=== PATIENT | female | born 1980 | race Two or more races ===

== ENCOUNTER 2024-04-13 15:52 | Emergency (ER) | payer MEDICAID ==
[~2024-04-13] VITALS: Ht 154.9 cm; Wt 103.9 kg
[2024-04-13] MEDS ORDERED: KETOROLAC TROMETHAMINE INJ 30 MG/ML VIAL ONE (18:06)
[2024-04-13] MEDS ORDERED: ACETAMINOPHEN 325 MG TABLET ONE (18:06)
[2024-04-13] MEDS ORDERED: METHOCARBAMOL (500MG) 500 MG TABLET ONE (18:06)
[2024-04-13 18:14] LABS: BASOPHILS # (AUTO) 0.1 K/uL (0.0-0.2); BASOPHILS % (AUTO) 0.5 % (0.0-2.0); EOSINOPHILS % (AUTO) 0.4 % (0.0-6.0); HEMATOCRIT 38 % (33-45); HEMOGLOBIN 12.7 g/dL (11.5-14.8); LYMPHOCYTES # (AUTO) 2.4 K/uL (0.8-4.8); LYMPHOCYTES % (AUTO) 24.6 % (20.0-44.0); MEAN CORPUSCULAR HEMOGLOBIN 29 PG (26.0-33.0); MEAN CORPUSCULAR HGB CONC 33 g/dl (31.0-36.0); MEAN CORPUSCULAR VOLUME 87 fL (82-100); MONOCYTES # (AUTO) 0.7 K/uL (0.1-1.30); MONOCYTES % (AUTO) 7.1 % (2.0-12.0); NEUTROPHILS # (AUTO) 6.5 K/uL (1.8-8.9); NEUTROPHILS % (AUTO) 67.4 % (43.0-81.0); PLATELET COUNT (AUTO) 369 K/uL (150-450); RED BLOOD CELL COUNT(AUTO) 4.37 MIL/uL (4.0-5.2); RED CELL DISTRIBUTION WIDTH 14.1 % (11.5-15.0); WHITE BLOOD COUNT (AUTO) 9.7 K/uL (4.3-11.0)
[2024-04-13] MEDS: METHOCARBAMOL (750MG) 750 MG TABLET PO SCH (18:15)
[2024-04-13] MEDS: KETOROLAC TROMETHAMINE INJ 30 MG/ML VIAL IM ONE (18:15)
[2024-04-13] MEDS: ACETAMINOPHEN 325 MG TABLET PO ONE (18:15)
[2024-04-13 18:24] LABS: CALCIUM, SERUM 9.3 mg/dL (8.5-10.1); CREATININE 0.7 mg/dL (0.6-1.3); POTASSIUM 3.8 mmol/L (3.5-5.1)
[2024-04-13 19:46] VITALS: BP 126/84; TEMP 98.3; O2SAT 100
== END 2024-04-13 19:49 | disposition home or self-care (01) ==
LOC: ER 16:01
DX: M54.50 Low back pain, unspecified (principal); M79.604 Pain in right leg; R42 Dizziness and giddiness; R51.9 Headache, unspecified; R53.1 Weakness
CPT/HCPCS: 99284; 96372; 93005; 85025; 80048; 36415; J1885